=== PATIENT | female | born 1980 | race Hispanic/Latino ===

== ENCOUNTER 2019-12-13 13:59 | Observation (INO) | payer OTHER ==
[~2019-12-13] VITALS: Ht 162.6 cm; Wt 76.2 kg
[2019-12-13] MEDS ORDERED: SODIUM CHLORIDE 0.9% 1000ML 1,000 ML IV STA (14:22)
[2019-12-13 14:43] LABS: BASOPHILS % 0.3 % (0.0-1.0); EOSINOPHILS % 0.2 % (0.0-6.0); HEMATOCRIT 43.5 % (34.2-44.1); LYMPHOCYTES # (AUTO) 2.2 (1.0-3.2); LYMPHOCYTES % 19.8 % (18.0-39.1); MEAN CORPUSCULAR HEMOGLOBIN 30.4 pg (28-32); MEAN CORPUSCULAR HGB CONC 34.5 g/dL (31-35); MEAN CORPUSCULAR VOLUME 88.1 fL (81-99); MONOCYTES # (AUTO) 0.5 (0.2-0.8); MONOCYTES % 4.7 % (4.4-11.3); NEUTROPHILS # (AUTO) 8.4 (2.1-6.9); NEUTROPHILS % 74.7 % (38.7-80.0); PLATELET COUNT 262 x10e3/uL (140-360); RED BLOOD COUNT 4.94 x10e6/uL (3.6-5.1); RED CELL DISTRIBUTION WIDTH 12.3 % (11.7-14.4)
[2019-12-13] MEDS ORDERED: PANTOPRAZOLE 40 MG 10ML VIAL IV STA (14:46)
[2019-12-13 14:54] LABS: BILIRUBIN,URINE SMALL (NEGATIVE); CLARITY,URINE SL CLOUDY (CLEAR); COLOR,URINE YELLOW (YELLOW); KETONES,URINE 2+ (NEGATIVE); LEUKOCYTE ESTERASE ,URINE NEGATIVE (NEGATIVE); NITRITE,URINE NEGATIVE (NEGATIVE); PROTEIN,URINE DIPSTICK NEGATIVE (NEGATIVE); URINE UROBILINOGEN 0.2 mg/dL (0.2 - 1)
[2019-12-13 15:02] LABS: ALANINE AMINOTRANSFERASE 38 IU/L (0-55); ALKALINE PHOSPHATASE 60 IU/L (40-150); ANION GAP 13.6 mmol/L (8-16); BLOOD UREA NITROGEN 8 mg/dL (7-26); BUN/CREATININE RATIO 10 (6-25); CALCIUM 9.6 mg/dL (8.4-10.2); CARBON DIOXIDE 23 mmol/L (22-29); CHLORIDE 102 mmol/L (98-107); CREATININE, SERUM 0.79 mg/dL (0.57-1.11); EST GLOMERULAR FILTRATION RATE > 60 ML/MIN (60-); GLUCOSE 108 mg/dL (74-118); LIPASE 14 U/L (8-78); POTASSIUM 3.6 mmol/L (3.5-5.1); SODIUM 135 mmol/L (136-145)
[2019-12-13 15:08] LABS: BACTERIA,URINE FEW /HPF; EPITHELIAL CELLS,URINE FEW /LPF; RBC,URINE 0-5 /HPF (0-5)
[2019-12-13 15:09] LABS: MUCUS,URINE MODERATE (RARE)
--- NOTE | 2019-12-13 16:33 | Diagnostic Imaging Report ---
Exam: CT abdomen and pelvis Clinical history: Right upper quadrant abdominal pain Technique: Helical images of the abdomen and pelvis were obtained after IV contrast administration DOSE REDUCTION: The exams was performed according to the departmental dose-optimization program which includes automated exposure control, adjustment of the mA and/or kV according to patient size and/or use of iterative reconstruction technique. Findings: The lung bases are clear. There is no evidence of pleural effusion. The cardiac size is within normal limits. The gallbladder is mildly distended with a 3.4 cm stone in the gallbladder neck. There is pericholecystic fluid. Clinical correlation is recommended to rule out acute inflammatory disease of the gallbladder. The liver, spleen, pancreas, adrenal glands, and kidneys are unremarkable. The small and large bowels are normal in caliber without evidence of obstruction. Appendix is visualized and normal in size. The bladder, uterus, and ovaries are within normal limits. There is no evidence of lymphadenopathy. The aorta and IVC are normal in caliber. Impression: 1. Cholelithiasis with pericholecystic fluid. This may represent acute cholecystitis. Recommend clinical correlation. Signed by: Dr. Yogesh Bradales MD on 12/13/2019 4:30 PM
[2019-12-13] MEDS ORDERED: MORPHINE SULFATE 2 MG/ML SYR 1ML IV PRN (16:45)
--- OUTSIDE RECORDS SUMMARY | 2019-12-13 16:56 | XMS REPORT ---
Author Author [facility] t Organization Formerly [facility] Address [address] [place] [id number] Phone Unavailable Care Team Providers Care Oncology Nurse Name Role Phone Kim GANDHI Atttristin Unavailable Problems This patient has no known problems. Allergies, Adverse Reactions, Alerts This patient has no known allergies or adverse reactions. Medications This patient has no known medications. Procedures This patient has no known procedures. Results Test Description Test Time Test Comments Results Result Comments Source CT ABDOMEN/PELVIS W 2019-12-13 16:28:00 [place] [address] Patient Name: SERG BE MR #: [id number] : 1980 Age/Sex: 39/F Req #: [id number] Adm Physician: Ordered by: KOFFI NAIDU CHAINER Report #: [id number] Location: ER Room/Bed: Procedure: [id number] CT/CT ABDOMEN/PELVIS W Exam Date: 12/13/19 Exam Time: 1550 REPORT STATUS: Signed Exam: CT abdomen and pelvis Clinical history: Right upper quadrant abdominal pain Technique: Helical images of the abdomen and pelvis were obtained after IV contrast administration DOSE REDUCTION: The exams was performed according to the departmental dose-optimization program which includes automated exposure control, adjustment of the mA and/or kV according to patient size and/or use of iterative reconstruction technique. Findings: The lung bases are clear. There is no evidence of pleural effusion. The cardiac size is within normal limits. The gallbladder is mildly distended with a 3.4 cm stone in the gallbladder neck. There is pericholecystic fluid. Clinical correlation is recommended to rule out acute inflammatory disease of the gallbladder. The liver, spleen, pancreas, adrenal glands, and kidneys are unremarkable. The small and large bowels are normal in caliber without evidence of obstruction. Appendix is visualized and normal in size. The bladder, uterus, and ovaries are within normal limits. There is no evidence of lymphadenopathy. The aorta and IVC are normal in caliber. Impression: 1. Cholelithiasis with pericholecystic fluid. This may represent acute cholecystitis. Recommend clinical correlation. Signed by: Dr. Yogesh Bardales MD on 12/13/2019 4:30 PM Dictated By: SHERRILL BARDALES MD 1630 Transcribed By: SANDHYA on 12/13/19 1630 COPY TO: KOFFI NAIDU NP
[2019-12-13] MEDS ORDERED: BLISOVI FE 1-21 EACH (17:30)
--- NOTE | 2019-12-13 17:36 | Emergency Department Note ---
History of Present Illnes History of Present Illness Chief Complaint: Abdominal Complaints History of Present Illness This is a 39 year old female . Historian: Patient Arrival Mode: Car Glass Maker Required: No Onset (how long ago): hour(s) (10) Radiation: abdomen Severity: mild Onset quality: sudden Timing of current episode: intermittent Progression: worsening Chronicity: new Relieving factors: none Exacerbating factors: none Treatments prior to arrival: none (KOFFI NAIDU NP) Past Medical/Family History Physician Review I have reviewed the patient's past medical and family history. Any updates have been documented here. (KOFFI NAIDU NP) Past Medical History Recent Fever: No Clinical Suspicion of Infectio: No New/Unexplained Change in Ment: No Past Medical History: None Past Surgical History: None (KOFFI NAIDU NP) Social History Smoking Cessation: Never Smoker Counseling Performed: No Alcohol Use: None Any Illegal Drug Use: No TB Exposure/Symptoms: No Physically hurt or threatened: No (KOFFI NAIDU NP) Other Last Tetanus: unk Any Pre-Existing Lines (PICC,: No Is patient up to date on immun: No Last Flu: unk Last Pneumovax: unk (KOFFI NAIDU NP) Review of Systems ROS Narrative Patient is a 39 year old female that presents with epigastric and rigt upper abd pain x 1 day. Patient states that she had an episode yesterday and resolved then came back today (KOFFI NAIDU NP) Review of Systems Constitutional: no symptoms EENTM: no symptoms Cardiovascular: no symptoms Respiratory: no symptoms Gastrointestinal: abdominal pain Genitourinary: no symptoms Musculoskeletal: no symptoms Neurological: no symptoms Psychological: no symptoms Endocrine: no symptoms Hematological/Lymphatic: no symptoms Review of other systems All other systems reviewed and negative. (KOFFI NAIDU NP) Physical Exam Related Data Allergies: Coded Allergies: No Known Allergies (Unverified , 12/13/19) Triage Vital Signs Vital Signs Date Time Temp Pulse Resp B/P (MAP) Pulse Ox O2 Delivery O2 Flow Rate FiO2 12/13/19 14:24 16 Vital signs reviewed: Yes (KOFFI NAIDU NP) Physical Exam CONSTITUTIONAL Constitutional: well-developed, well-nourished HENT HENT: normocephalic, atraumatic, oropharynx clear/moist, nose normal HENT L/R: left ext ear normal, right ext ear normal EYES Eyes: PERRL, conjunctivae normal NECK Neck: ROM normal PULMONARY Pulmonary: effort normal, breath sounds normal CARDIOVASCULAR Cardiovascular: regular rhythm, heart sounds normal, capillary refill normal, normal rate GASTROINTESTINAL Abdominal: soft, bowel sounds normal, tender (epigastric r/t right upper abd) GENITOURINARY Genitourinary: exam deferred SKIN Skin: warm, dry MUSCULOSKELETAL Musculoskeletal: ROM normal NEUROLOGICAL Neurological: alert, oriented x 3, no gross motor or sensory deficits PSYCHOLOGICAL Psychological: mood/affect normal, judgement normal (KOFFI NAIDU NP) Results Laboratory Laboratory Laboratory Tests Test 12/13/19 14:10 (KOFFI NAIDU NP) Critical Care Time Subsequent provider I assumed direction of critical care for this patient from another provider of my specialty. (KOFFI NAIDU NP) Assessment & Plan Assessment & Plan Final Impression: (1) Acute cholecystitis Assessment & Plan Discussed with patient all results and plan to admit. Discussed surgery and answered all questions. (KOFFI NAIDU NP) Depart Disposition: ADMITTED Last Vital Signs Date Time Temp Pulse Resp B/P (MAP) Pulse Ox O2 Delivery O2 Flow Rate FiO2 12/13/19 14:24 16 (KOFFI NAIDU NP) Home Meds Reported Medications Norethindrone-E.estradiol-Iron (Blisovi Fe 1-20 Tablet) 1 Each Tablet 12/13/19 Medications in the ED Sodium Chloride 1,000 ml @ 0 mls/hr Q0M STAT IV ; Start 12/13/19 at 14:22; Stop 12/13/19 at 14:23; Status DC Pantoprazole Sodium 40 mg NOW STAT IV ; Start 12/13/19 at 14:46; Stop 12/13/19 at 14:47; Status UNV (KOFFI NAIDU NP) Physician Attestation Provider Attestation The patient's history, exam findings, diagnostics, and a summary of any interventions or procedures was reviewed in detail with our ELIZABETH. I personally interviewed and examined the patient, and I have reviewed and agree with the HPI andexam. My personal exam shows epigastric/RUQ tenderness. Pt admitted for acute cholecystitis. I confirm the diagnosis as documented by the ELIZABETH. I have reviewed and agree with the care plan articulated in the disposition section. (SANDHIR, AMBJOIE DOBSON JOHNNA NP December 13, 2019 14:52 RACHEL GANDHI DO December 13, 2019 17:35
[2019-12-13] MEDS ORDERED: ACETAMINOPHEN 325 MG TAB PO PRN (17:45)
[2019-12-13] MEDS ORDERED: SODIUM CHLORIDE 0.9% 50ML 50 ML ONE (17:55)
[2019-12-13] MEDS ORDERED: IOPAMIDOL 370 MG/ML 200 ML INFUS..BTL INJ ONE (17:55)
[2019-12-13] MEDS: SODIUM CHLORIDE 0.9% 1000ML 1,000 ML IV SCH (18:34)
[2019-12-13] MEDS: PIPER-TAZ 3.375 GM 50 ML IV SCH (18:34)
[2019-12-13 19:10] VITALS: BP 131/92
--- NOTE | 2019-12-13 19:10 | NUR ---
patient received awake, alert, lying quietly in bed. pain minimal at this time. ivf continue to infuse without difficulty. food brought in from outside noticed on patients bedside table. patient instructed on npo status. patient verbalizes understanding of this. admit assessment/history obtained. patient instructed to call for assistance when needed.
[2019-12-13] MEDS ORDERED: FENTANYL CITRATE/PF 100MCG/2 ML INJ ONE (19:54)
[2019-12-13] MEDS ORDERED: MORPHINE SULFATE INJ 10 MG/ML ONE (19:54)
[2019-12-13] MEDS ORDERED: MIDAZOLAM HCL 2 MG/2 ML VIAL ONE (19:54)
[2019-12-13 20:00] VITALS: BP 131/92
[2019-12-13] MEDS: MORPHINE SULFATE INJ 4 MG/ML INJ 1ML IV PRN (20:00)
[2019-12-13] MEDS: ONDANSETRON HCL INJ 2MG/ML 2ML 2 MG/ML VIAL IV PRN (20:00)
--- NOTE | 2019-12-13 20:00 | NUR ---
patient medicated with morphine 4mg and zofran 4mg ivp for c/o abd pain 01/30 at this time per patients request.
[2019-12-13] MEDS: FAMOTIDINE 20 MG/2 ML VIAL IV SCH (20:11)
[2019-12-13 21:32] VITALS: BP 131/92
[2019-12-14] VITALS (7 sets, daily range): BP systolic 113–133; BP diastolic 83–91
--- NOTE | 2019-12-14 | NUR ---
patient medicated with morphine 4mg and zofran 4mg ivp for c/o right upper quad abd pain 8/10 at this time per patients request.
--- NOTE | 2019-12-14 00:35 | Consultation ---
DATE OF CONSULTATION: 12/13/2019 CHIEF COMPLAINT: Abdominal pain. HISTORY OF PRESENT ILLNESS: The patient is a 39-year-old female with 1-week history of chronic intermittent pain in epigastric right upper quadrant with nausea and anorexia. No vomiting. No diarrhea. No fevers. PAST MEDICAL HISTORY: Negative for chronic medical illness. PAST SURGICAL HISTORY: Positive for foot surgery and . ALLERGIES: SHE HAS NO DRUG ALLERGIES. SOCIAL HABITS: She does not smoke or drink alcohol. REVIEW OF SYSTEMS: No chest pain, shortness of breath, cough, or fevers. PHYSICAL EXAMINATION: VITAL SIGNS: Stable. Afebrile. GENERAL: She is awake, alert, in [id number]-[id number] discomfort. HEENT: Sclerae are nonicteric. NECK: Supple. LUNGS: Clear. HEART: Regular rate and rhythm. ABDOMEN: Soft with some guarding in the right upper quadrant without rebound. EXTREMITIES: Without cyanosis or edema. LABORATORY DATA: White cell count is 11, hemoglobin of 15, creatinine 0.8. Liver function tests unremarkable. CT of the abdomen show distention of the gallbladder with a large stone at the neck. ASSESSMENT: Cholelithiasis and probable cholecystitis. PLAN: Laparoscopic cholecystectomy. Attendant risks discussed. Sammy Valdez MD DNL/MODL /[id number]
[2019-12-14] MEDS: PIPER-TAZ 3.375 GM 50 ML IV SCH ×3 (01:08→17:31)
--- NOTE | 2019-12-14 02:23 | NUR ---
patient oob to shower.
--- NOTE | 2019-12-14 02:30 | NUR ---
consent obtained for lap, possible open cholecystectomy at this time and placed on patients chart.
[2019-12-14 06:18] LABS: BASOPHILS % 0.4 % (0.0-1.0); EOSINOPHILS % 0.4 % (0.0-6.0); HEMATOCRIT 38.8 % (34.2-44.1); HEMOGLOBIN 13.1 g/dL (12.0-16.0); LYMPHOCYTES # (AUTO) 1.7 (1.0-3.2); LYMPHOCYTES % 17.4 % (18.0-39.1); MEAN CORPUSCULAR HGB CONC 33.8 g/dL (31-35); MONOCYTES # (AUTO) 0.6 (0.2-0.8); MONOCYTES % 6.2 % (4.4-11.3); NEUTROPHILS # (AUTO) 7.4 (2.1-6.9); NEUTROPHILS % 75.3 % (38.7-80.0); PLATELET COUNT 216 x10e3/uL (140-360); RED BLOOD COUNT 4.36 x10e6/uL (3.6-5.1); RED CELL DISTRIBUTION WIDTH 12.5 % (11.7-14.4)
[2019-12-14 06:50] LABS: ALANINE AMINOTRANSFERASE 34 IU/L (0-55); ALBUMIN 3.3 g/dL (3.5-5.0); ALBUMIN/GLOBULIN RATIO 1.1 (0.8-2.0); ALKALINE PHOSPHATASE 60 IU/L (40-150); ANION GAP 11.1 mmol/L (8-16); BLOOD UREA NITROGEN 7 mg/dL (7-26); BUN/CREATININE RATIO 9 (6-25); CALCIUM 8.3 mg/dL (8.4-10.2); CARBON DIOXIDE 21 mmol/L (22-29); CHLORIDE 109 mmol/L (98-107); CREATININE, SERUM 0.82 mg/dL (0.57-1.11); EST GLOMERULAR FILTRATION RATE > 60 ML/MIN (60-); GLUCOSE 120 mg/dL (74-118); LIPASE 16 U/L (8-78); MAGNESIUM 2.1 MG/DL (1.3-2.1); POTASSIUM 4.1 mmol/L (3.5-5.1); SODIUM 137 mmol/L (136-145)
[2019-12-14 07:01] LABS: THYROID STIMULATING HORMONE 0.109 uIU/mL (0.350-4.940)
--- NOTE | 2019-12-14 09:03 | NUR ---
patient off the unit for surgery, stable, due antibiotic sent with the patient
[2019-12-14] MEDS ORDERED: SUGAMMADEX SODIUM 200 MG/2 ML VIAL IV ONE (09:04)
[2019-12-14] MEDS ORDERED: BUPIVACAINE 0.5%/EPI 30 ML SDV INJ ONE (09:37)
--- NOTE | 2019-12-14 11:17 | NUR ---
PATIENT BACK FROM SURGERY. AAOx3, 4 TROCHAR SITE IS INTACT, NOT IN ANY DISTRESS, ON TELE, ON FLUIDS, KEEP MONITORING, HER SISTER AT BED SIDE
[2019-12-14] MEDS: FAMOTIDINE 20 MG/2 ML VIAL IV SCH ×2 (11:34→20:28)
--- NOTE | 2019-12-14 11:52 | Operative Report ---
DATE OF PROCEDURE: 12/14/2019 SURGEON: Sammy Valdez MD PREOPERATIVE DIAGNOSIS: Cholecystitis. POSTOPERATIVE DIAGNOSES: Cholecystitis and cholelithiasis. OPERATIVE PROCEDURE: Laparoscopic cholecystectomy. ANESTHESIA: General. INDICATION: The patient is a 39-year-old female, one-week history of intermittent epigastric abdominal pain, which is worsened in the last 2 days with vomiting. Ultrasound shows stone in the neck of the gallbladder. The patient consented for laparoscopic cholecystectomy. Attendant risks discussed. PROCEDURE FINDINGS: Acute cholecystitis with gallstones DESCRIPTION OF PROCEDURE: The patient was brought to the OR and intubated. The abdomen was prepped and draped in sterile fashion. An infraumbilical incision was made and a 10 mm port inserted. Insufflation began under direct vision. Other port sites placed in the midepigastric and right upper quadrant. Gallbladder distended. It was decompressed with a needle. Fundus then retracted in cephalad direction. Next, the gallbladder retracted laterally with blunt dissection. We isolated cystic artery, triple clipped and divided. Cystic duct was isolated and the junction of the common bile duct was noted before triple clipping the cystic duct and divided between clips. The gallbladder was then detached from the liver with cautery and taken out through umbilical incisions. Operative field was then irrigated. Hemostasis was achieved. All ports removed under direct vision. Fascia was closed with 0 Vicryl. Skin was then closed with subcuticular stitch. The patient was extubated and transported to recovery room. BLOOD LOSS: 10 mL. Sammy Valdez MD DNL/MODL /[id number]
[2019-12-14] MEDS: MORPHINE SULFATE INJ 4 MG/ML INJ 1ML IV PRN ×4 (11:59→21:49)
[2019-12-14] MEDS: ONDANSETRON HCL INJ 2MG/ML 2ML 2 MG/ML VIAL IV PRN ×3 (17:24→21:49)
--- NOTE | 2019-12-14 19:05 | NUR ---
patient received awake, alert, lying quietly in bed. no c/o pain noted. trochar sites to abd c,d,i. ivf infusing without difficulty. pm assessment complete. patient instructed to call for assistance when needed.
[2019-12-14] MEDS ORDERED: ONDANSETRON HCL INJ 2MG/ML 2ML 2 MG/ML VIAL ONE (19:33)
[2019-12-14] MEDS ORDERED: ROCURONIUM BROMIDE 10 MG/ML 5ML VIAL IV ONE (19:33)
[2019-12-14] MEDS ORDERED: DEXAMETHASONE SOD PHOS INJ 4 MG/ML VIAL ONE (19:33)
[2019-12-14] MEDS ORDERED: PROPOFOL IV EMULSION 10 MG/ML 20 ML VIAL ONE (19:33)
[2019-12-14] MEDS ORDERED: ACETAMINOPHEN 1000 MG/100 ML IV ONE (19:33)
[2019-12-14] MEDS ORDERED: SEVOFLURANE INHAL SOLN 250 ML PEN BTL ONE (19:33)
[2019-12-14] MEDS ORDERED: LIDOCAINE HCL 2% LOCAL INJ 5 ML SDV VIAL INJ ONE (19:33)
[2019-12-14] MEDS: SODIUM CHLORIDE 0.9% 1000ML 1,000 ML IV SCH (20:28)
--- NOTE | 2019-12-14 21:49 | NUR ---
patient medicated with morphine 4mg and zofran 4mg ivp for c/o abd pain 01/30 at this time per patients request.
--- NOTE | 2019-12-14 23:00 | NUR ---
patient oob ambulating in hallway and in room without difficulty.
[2019-12-15] VITALS (7 sets, daily range): BP systolic 105–133; BP diastolic 61–95
[2019-12-15] MEDS: ONDANSETRON HCL INJ 2MG/ML 2ML 2 MG/ML VIAL IV PRN (01:55)
[2019-12-15] MEDS: MORPHINE SULFATE INJ 4 MG/ML INJ 1ML IV PRN ×3 (01:55→10:56)
--- NOTE | 2019-12-15 01:55 | NUR ---
patient medicated with morphine 4mg and zofran 4mg ivp for c/o abd pain 01/30 at this time per patients request.
[2019-12-15] MEDS: PIPER-TAZ 3.375 GM 50 ML IV SCH ×2 (02:00→09:38)
--- NOTE | 2019-12-15 06:26 | NUR ---
patient medicated with morphine 4mg ivp for c/o lower abd pain 7/10 at this time per patients request.
[2019-12-15 06:42] LABS: BASOPHILS # (AUTO) 0.1 (0.0-0.1); BASOPHILS % 0.5 % (0.0-1.0); EOSINOPHILS # (AUTO) 0.1 (0.0-0.4); EOSINOPHILS % 0.6 % (0.0-6.0); HEMATOCRIT 34.1 % (34.2-44.1); HEMOGLOBIN 11.3 g/dL (12.0-16.0); LYMPHOCYTES # (AUTO) 2.9 (1.0-3.2); MEAN CORPUSCULAR HEMOGLOBIN 29.4 pg (28-32); MEAN CORPUSCULAR HGB CONC 33.1 g/dL (31-35); MEAN CORPUSCULAR VOLUME 88.6 fL (81-99); MONOCYTES # (AUTO) 0.7 (0.2-0.8); MONOCYTES % 7.1 % (4.4-11.3); NEUTROPHILS # (AUTO) 5.7 (2.1-6.9); NEUTROPHILS % 60.5 % (38.7-80.0); PLATELET COUNT 212 x10e3/uL (140-360); RED BLOOD COUNT 3.85 x10e6/uL (3.6-5.1); RED CELL DISTRIBUTION WIDTH 12.4 % (11.7-14.4)
[2019-12-15 07:01] LABS: ALANINE AMINOTRANSFERASE 44 IU/L (0-55); ALBUMIN 3.1 g/dL (3.5-5.0); ALKALINE PHOSPHATASE 52 IU/L (40-150); ANION GAP 13.1 mmol/L (8-16); BLOOD UREA NITROGEN 6 mg/dL (7-26); BUN/CREATININE RATIO 9 (6-25); CALCIUM 8.7 mg/dL (8.4-10.2); CARBON DIOXIDE 20 mmol/L (22-29); CHLORIDE 109 mmol/L (98-107); CREATININE, SERUM 0.69 mg/dL (0.57-1.11); EST GLOMERULAR FILTRATION RATE > 60 ML/MIN (60-); GLUCOSE 69 mg/dL (74-118); POTASSIUM 4.1 mmol/L (3.5-5.1); SODIUM 138 mmol/L (136-145)
[2019-12-15 07:26] LABS: FREE T4 (FREE THYROXINE) 0.56 ng/dL (0.8-1.8); THYROID STIMULATING HORMONE 0.467 uIU/mL (0.350-4.940)
[2019-12-15] MEDS: FAMOTIDINE 20 MG/2 ML VIAL IV SCH (08:56)
[2019-12-15] MEDS ORDERED: TYLENOL WITH C1 EACH PO (10:16)
--- NOTE | 2019-12-15 13:53 | NUR ---
patient discharged home, prescription given, not in any distress, 4 trochar site is intact, patient tolerated GI Soft diet, No c/o nausea, loose stools or pain this time. IV removed with tip intact, no ss of infiltration noted, her sister at bed side, transported via wheelchair to [facility]
--- NOTE | 2019-12-17 11:34 | Discharge Summary ---
ADMISSION DIAGNOSIS: Cholelithiasis, low TSH. DISCHARGE DIAGNOSIS: Cholelithiasis, low TSH. HISTORY: None. SURGICAL HISTORY: x2, right bunionectomy. FAMILY HISTORY: The patient's dad has diabetes. The patient's mom had cancer. SOCIAL HISTORY: Occasional alcohol use. HOSPITAL COURSE: A 39-year-old female admits with complaints of burning epigastric pain that began night. She took Pepto and Tums with no relief. She denies nausea, vomiting, diarrhea, and fever. On admission, CT of the abdomen and pelvis showed cholelithiasis with pericholecystic fluid. This may represent acute cholecystitis. Surgery was consulted. LFTs were within normal limits. The patient had a laparoscopic cholecystectomy on 12/13. After the procedure, the diet was advanced as tolerated, pain was well controlled and the patient is passing gas. As she is tolerating diet she will discharge home and follow up with Dr. Valdez in one week. The patient and sister understand discharge instructions and agrees to plan. Vital signs stable, patient afebrile. Dictated by Lydia Velazquez NP MD KEVAN Lua/MODMishel /[id number]
== END 2019-12-15 14:30 | disposition home or self-care (01) ==
LOC: ER 13:59 → ERHOLD 16:41 → MED/SURG3 18:15
PROVIDERS: ADMIT Internal Medicine; ATTEND Internal Medicine
DX: K80.00 Calculus of gallbladder with acute cholecystitis without obstruction (principal)
CPT/HCPCS: 36415 ×3; 47562; 74177; 80053 ×3; 81001; 83036; 83690 ×2; 83735; 84439; 84443 ×2; 84702; 85025 ×3; 87635; 88304; 99284; C9113; G0378 ×3; J0131; J1100; J2001; J2250; J2270 ×4; J2405 ×3; J2543 ×3; J2704; J3010; J7030 ×2; Q9967